=== PATIENT | male | born 1945 | race Caucasian/White ===

== ENCOUNTER → 2023-03-07 09:01 | Outpatient (CLI) | payer MEDICARE, OTHER, SELFPAY ==
--- NOTE | 2023-03-07 | DI.ECHO.S_ITS ---
[facility]---------+ [facility] +---------+ : : [address] : [place] : : : : [id number] : : : : Phone: [phone]---------+ Echocardiogram Report + + :Name: CARA MCGINNIS Study Date: 03/07/2023 Height: 75 in : :[facility] ReadingLocation: Weight: 235 lb : : Gender: Male BSA: 2.4 m2 : :: 1945 Age: 77 yrs BP: 159/88 mmHg: :Reason For Study: Supraventricular tachycardia : : Performed By: Ludivina Blake : :Referring: GUILLERMO BERNAL : + + Interpretation Summary The left ventricle is normal in size and wall thickness. Left ventricular systolic function appears normal without focal wall motion abnormalities. The ejection fraction is estimated to be 60-65%. Diastolic parameters suggest probable normal left ventricular diastolic function and normal filling pressures. The right ventricle is normal in size and function. Pulmonary artery pressures cannot be estimated because of the lack of a measurable TR jet velocity but the IVC suggests a CVP of around 3 mmHg. Both atria are normal in size. There is no significant valvular heart disease. The ascending aorta is mildly enlarged. Procedure: A two-dimensional transthoracic echocardiogram with color flow and Doppler was performed. The study quality was technically adequate. There is no prior echocardiogram noted for this patient. The patient was in normal sinus rhythm during the exam. Left Ventricle: The left ventricle is normal in size and wall thickness. Left ventricular systolic function appears normal without focal wall motion abnormalities. The ejection fraction is estimated to be 60-65%. Diastolic parameters suggest probable normal left ventricular diastolic function and normal filling pressures. Right Ventricle: The right ventricle is normal in size and function. Atria: Both atria are normal in size. There is no Doppler evidence for an interatrial shunt. Mitral Valve: The mitral valve is normal in structure and function. There is trace mitral regurgitation. Aortic Valve: The aortic valve is normal in structure and function. No aortic regurgitation is present. Tricuspid Valve: The tricuspid valve is normal in structure and function. There is a trace or physiologic amount of tricuspid regurgitation. Pulmonary artery pressures cannot be estimated because of the lack of a measurable TR jet velocity but the IVC suggests a CVP of around 3 mmHg. Pulmonic Valve: The pulmonic valve is not well seen, but is grossly normal. There is a trace or physiologic amount of pulmonic regurgitation. There is no significant valvular heart disease. Great Vessels: The aortic root is normal size. The ascending aorta is mildly enlarged. The aortic arch is normal in size. The IVC is of normal diameter and collapses greater than 50% with a sniff. This suggests a low right atrial pressure of 3 mm Hg. Pericardium/ Pleura There is no pericardial effusion. MMode/2D Measurements & Calculations LVIDd: 4.9 cm LVOT diam: 2.3 cm LVIDs: 3.3 cm Ao root diam: 3.6 cm FS: 33.6 % asc Aorta Diam: 4.3 cm EPSS: 1.1 cm Ao Arch Diam (Prox Trans): 2.8 cm IVSd: 0.70 cm LVPWd: 0.89 cm LV pandey. diameter/BSA (cm/m^2): 2.1 LV sys. diameter/BSA (cm/m^2): 1.4 LA A2 area: 17.6 cm2 RA long axis: 5.8 cm LA A4 area: 22.8 cm2 RA area: 21.3 cm2 LA length (vol): 5.9 cm RA vol: 66.7 ml LA vol: 57.5 ml RA : 28.4 ml/m2 LA vol index: 24.5 ml/m2 IVC diam: 1.1 cm RVD1 (basal): 4.0 cm TAPSE: 2.6 cm Doppler Measurements & Calculations Ao V2 max: 132.3 cm/sec LVOT Max Yifan: 106.8 cm/sec Ao V2 mean: 95.6 cm/sec LV V1 max P.6 mmHg Ao max P.0 mmHg LV V1 VTI: 21.3 cm Ao mean P.1 mmHg ROSALIE(I,D): 2.7 cm2 Ao V2 VTI: 31.7 cm ROSALIE(V,D): 3.2 cm2 sev ratio: 0.67 ROSALIE indexed to BSA (cm^2/m^2): 1.1 MV E max yifan: 87.2 cm/sec PA V2 max: 73.0 cm/sec MV A max yifan: 79.7 cm/sec PA V2 mean: 46.1 cm/sec MV E/A: 1.1 PA mean P.0 mmHg Med Peak E' Yifan: 8.0 cm/sec PA pr(Accel): 27.6 mmHg E/E' med: 10.8 Lat Peak E' Yifan: 9.2 cm/sec E/E' lat: 9.5 E/e' average: 10.2 MV dec time: 0.27 sec SV(LVOT): 85.3 ml Reading Physician:[id number] PM
== END ==
PROVIDERS: PCP Internal Medicine; Referring Provider Internal Medicine; Visit Provider Internal Medicine
DX: I77.89 Other specified disorders of arteries and arterioles (principal); I47.1 Supraventricular tachycardia
CPT/HCPCS: 93306

== ENCOUNTER → 2023-03-10 13:24 | Outpatient (CLI) | payer MEDICARE, OTHER, SELFPAY | PROVIDERS: PCP Internal Medicine; Referring Provider Internal Medicine; Visit Provider Internal Medicine | DX: I47.1 Supraventricular tachycardia (principal) | CPT/HCPCS: 93246 ==